=== PATIENT | male | born 1980 | race Caucasian/White ===

== ENCOUNTER 2020-12-10 15:06 | Emergency (ER) | payer MEDICAID, OTHER ==
[~2020-12-10] VITALS: Ht 170.2 cm; Wt 62.1 kg
[~2020-12-10 15:06] MED LIST: ALKA SELTZER
[2020-12-10 15:29] VITALS: BP 153/83
[2020-12-10] MEDS ORDERED: LORazepam 1 MG TAB PO ONE (15:45)
[2020-12-10] MEDS ORDERED: NACL 0.9% 1,000 ML IV ONE (15:45)
[2020-12-10 16:06] LABS: BASOPHILS # (AUTO) 0.1 K/uL (0.00-0.22); BASOPHILS % (AUTO) 0.7 % (0.0-2.0); EOSINOPHILS % (AUTO) 0.4 % (0.0-4.0); HEMATOCRIT 44.4 % (36-52); HEMOGLOBIN 15.4 g/dL (12.0-18.0); LYMPHOCYTES # (AUTO) 1.5 K/uL (2.0-11.5); LYMPHOCYTES % (AUTO) 15.2 % (20.5-51.1); MEAN CORPUSCULAR HEMOGLOBIN 31 pg (27-31); MEAN CORPUSCULAR HGB CONC 35 g/dL (33-37); MEAN CORPUSCULAR VOLUME 90.5 fL (80-94); MONOCYTES # (AUTO) 0.6 K/uL (0.8-1.0); MONOCYTES % (AUTO) 5.5 % (1.7-9.3); NEUTROPHILS # (AUTO) 7.9 K/uL (1.8-7.7); NEUTROPHILS % (AUTO) 78.2 % (42.2-75.2); PLATELET COUNT (AUTO) 316 K/uL (140-450); RED CELL DISTRIBUTION WIDTH 13.9 % (11.6-13.7); WHITE BLOOD COUNT (AUTO) 10.1 K/uL (4.8-10.8)
[2020-12-10 16:21] LABS: ALBUMIN 4.1 g/dL (3.4-5.0); CARBON DIOXIDE 25.5 mmol/L (21-32); POTASSIUM 3.5 mmol/L (3.5-5.1); TOTAL BILIRUBIN 0.3 mg/dL (0.0-1.0)
[2020-12-10] MEDS ORDERED: MECL-303 PO (18:48)
[2020-12-10 19:37] VITALS: BP 138/86
[2020-12-10 20:19] LABS: BARBITURATE, URINE NEGATIVE ng/ml (NEG <=200); BENZODIAZEPINE, URINE NEGATIVE ng/mL (NEG <=200); COCAINE, URINE POSITIVE ng/mL (NEG <=300)
[2020-12-10 20:20] LABS: CANNABINOID, URINE POSITIVE ng/mL (NEG <=50); OPIATE, URINE NEGATIVE ng/mL (NEG <=2000); PHENCYCLIDINE SCREEN,URINE NEGATIVE ng/mL (NEG <=25)
== END 2020-12-10 19:37 | disposition home or self-care (01) ==
LOC: MED 15:06
DX: R55 Syncope and collapse (principal); R03.0 Elevated blood-pressure reading, without diagnosis of hypertension; F14.10 Cocaine abuse, uncomplicated; Z79.899 Other long term (current) drug therapy
CPT/HCPCS: 36415; 71045; 80053; 80305; 81002; 84484; 85025; 93005; 96360; 99285; J7030